=== PATIENT | male | born 1990 | race Caucasian/White ===

== ENCOUNTER 2021-08-07 10:50 | Inpatient (IN) | payer OTHER ==
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
[2021-08-07] MEDS ORDERED: MAG HYDROX/AL HYDROX/SIMETH 30 ML CUP PO PRN (15:27)
[2021-08-07] MEDS ORDERED: MAGNESIUM HYDROXIDE 2,400 MG/10 ML CUP PO PRN (15:27)
[2021-08-07] MEDS ORDERED: ACETAMINOPHEN TAB 325 MG TAB PO PRN (15:27)
[2021-08-07] MEDS ORDERED: NICOTINE 14MG/24HR PATCH TRANSDERM SCH (15:30)
[2021-08-07] MEDS ORDERED: OLANZapine 10 MG VIAL IM PRN (15:35)
[2021-08-07] MEDS ORDERED: OLANZapine 5 MG TAB PO PRN (15:35)
[2021-08-07] MEDS ORDERED: traZODone HCL 50 MG TAB PO PRN (15:36)
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
[2021-08-08 07:07] VITALS: RESP 16
[2021-08-08 08:00] LABS: Basophils # (A) 0.1 k/uL (0-0.2); Basophils % (A) 1 %; Eosinophils # (A) 0.4 k/uL (0-0.7); Eosinophils % (A) 4 %; HCT 48.7 % (39.0-53.0); HGB 16.1 gm/dL (13.0-17.5); Lymphocytes # (A) 1.9 k/uL (1.0-4.8); Lymphocytes % (A) 21 %; MCH 30.5 pg (25.0-35.0); MCV 92.3 fL (80.0-100.0); Mean Platelet Volume 7.3; Monocytes # (A) 0.5 k/uL (0-1.0); Monocytes % (A) 5 %; Neutrophils % (A) 67 %; Platelet Count 274 k/uL (150-450); RBC 5.27 m/uL (4.30-5.90); RDW 12.4 % (11.5-15.5)
[2021-08-08 08:12] LABS: ALT 65 U/L (4-49); AST 46 U/L (17-59); African American GFR (CKD) >90 (>60 ml/min/1.73 sqM); Albumin 5.1 g/dL (3.5-5.0); Alkaline Phosphatase 66 U/L (38-126); Anion Gap 13 mmol/L; Blood Urea Nitrogen 16 mg/dL (9-20); Calcium 9.8 mg/dL (8.4-10.2); Carbon Dioxide 26 mmol/L (22-30); Chloride 104 mmol/L (98-107); Glucose 96 mg/dL (74-99); Non-African American GFR(CKD) >90 (>60 ml/min/1.73 sqM); Potassium 4.2 mmol/L (3.5-5.1); Sodium 143 mmol/L (137-145); Total Bilirubin 1.1 mg/dL (0.2-1.3); Total Protein 8.9 g/dL (6.3-8.2)
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
[2021-08-08] MEDS: ARIPiprazole 5 MG TAB PO SCH ×2 (16:02→16:05)
[2021-08-08 16:07] LABS: Chol/HDL Ratio 3.73 Ratio; LDL Cholesterol,Calculated 105.4 mg/dL (0.0-131.0)
[2021-08-08 20:55] LABS: Appearance,Urine Clear (Clear); Bilirubin,Urine Negative (Negative); Blood,Urine Negative (Negative); Color,Urine Yellow; Glucose,Urine (UA) Negative (Negative); Ketones,Urine Trace (Negative); Leukocyte Esterase,Urine Negative (Negative); Nitrite,Urine Negative (Negative); Protein,Urine Trace (Negative); Specific Gravity,Urine 1.031 (1.001-1.035)
[2021-08-08 22:25] LABS: Amphetamine Screen,Urine Not Detected (NotDetected); Barbiturate Screen,Urine Not Detected (NotDetected); Benzodiazepines Screen,Urine Not Detected (NotDetected); Cocaine Screen,Urine Not Detected (NotDetected); Methadone Screen, Urine Not Detected (NotDetected); Opiate Screen,Urine Not Detected (NotDetected); Oxycodone Screen, Urine Not Detected (NotDetected); Phencyclidine Screen,Urine Not Detected (NotDetected); Tricyclic Antidepressant,Urine Not Detected (NotDetected); Urn Cannabinoid Scrn Detected (NotDetected)
[2021-08-09] MEDS: ARIPiprazole 5 MG TAB PO SCH (09:38)
--- NOTE | 2021-08-09 10:37 | P.PN ---
Progress Note - Text Progress Note Date: 08/09/21 Interval History: Patient was seen wandering the hallways and was directable and agreeable to cee larkin with contract technical writer in the office. Patient states that he was just speaking with his mother over the phone and claims that she is very worried about him. She states that she is overreacting and he is trying to cope with his situation and being on the unit. He claims that he is feeling more positive today and trying to go to groups. He does continue to be more expansive in his affect and claims that he is not having any depression or anxiety. He is not taking any medications at this time and continues to not agree with treatment. He states that "I wish I went about it a different way but I still think that spiritually I should have done it" referring to what had occurred before coming into the hospital. She continues to make rastafari references and is religiously preoccupied. At this time patient denies any suicidal or homical ideations, intent or plan. Patient denies any auditory, visual hallucinations. Mental Status Exam: General Appearance: Patient appears to be well built, bald, wearing glasses, stated age is alert, directable. Patient appears to have fair hygiene and grooming. Behavior: Patient is seated without any agitated behavior. Religiously preoccupied. Speech: Patient's speech is fluent and nonpressured. Mood/Affect: Patient reports their mood is "good", affect is congruent Suicidality/Homicidality: Patient denies having any homicidal ideation intent or plan. Denies any suicidal ideations intent or plan Perceptions: Patient denies any visual hallucinations and denies any auditory hallucinations Though content/process: Religiously preoccupied, loose associations. Illogical at times. Memory and concentration: AOX3, grossly intact for the purposes of this session. Judgment and insight: Poor/impulsive, improving mildly Assessment Bipolar disorder, severe, manic episode, with psychotic features Cannabis use disorder Plan: -Patient continues to meet criteria for inpatient psychiatric admission for symptom stabilization and safety. Patient has not signed adult voluntary form and medication consent and was placed in patient's chart. -Medications: continue with Abilify 5 mg daily for mood stabilization/psychosis. Plan will be to transition patient onto a long-acting injection as patient has very poor insight and unlikely to take medications. Trazodone 50 mg daily at bedtime when necessary for insomnia. -When necessary Ativan and Haldol for agitation/aggression. -NRT -not needed as patient does not smoke. -SW on board for discharge planning. Encouraged the patient to participate in milieu. Currently awaiting deferral with district attorney and court date.
[2021-08-10] MEDS: ARIPiprazole 5 MG TAB PO SCH (08:50)
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
[2021-08-11] MEDS: ARIPiprazole 5 MG TAB PO SCH (07:57)
--- NOTE | 2021-08-11 11:52 | P.PN ---
Progress Note - Text Progress Note Date: 08/11/21 Interval History: Patient was seen in his room and was directable and agreeable to speak with insurance writer. This patient was [facility] from [facility] and minimizes his problems. He stated it was just one big misunderstanding. He stated he got well with just 1 pill of medication.. At this time patient denies any suicidal or homical ideations, intent or plan. Patient denies any auditory, visual hallucinations and denies any paranoia or delusions. Patient denies any side effects from the medications and has been compliant with meds. Mental Status Exam: General Appearance: Patient appears to be stated age is alert, directable, and cooperative. Behavior: Patient is calmly seated without any agitated behavior. Speech: Patient's speech is fluent and nonpressured. Mood/Affect: Mood is improving mildly, affect is congruent and constricted. Suicidality/Homicidality: Patient denies having any suicidal or homicidal ideation intent or plan. Perceptions: Patient denies any visual hallucinations and denies any auditory hallucinations Though content/process: There is no evidence of any delusional thought content and thought process is linear and goal-directed. Memory and concentration: AOX3, grossly intact for the purposes of this session Judgment and insight: Improving mildly Assessment This patient has a significant denial to his illness and continues to show residual symptoms of present illness. Plan: -Patient continues to meet criteria for inpatient psychiatric admission for symptom stabilization and safety. -Medications: Continue medication as before. -When necessary Ativan and Haldol for agitation/aggression. -SW on board for discharge planning. Encouraged the patient to participate in milieu.
[2021-08-12] MEDS: ARIPiprazole 5 MG TAB PO SCH (07:46)
--- NOTE | 2021-08-12 11:33 | P.PN ---
Progress Note - Text Progress Note Date: 08/12/21 Interval History: Patient was seen wandering the hallways and was directable and agreeable to cee larkin with automatic typewriter inspector in the office. Patient claims that he has been going to groups and is feeling better today. He states that he is having more reflection back on the events that occur and was very regretful about what he did. He states that he wants to call the Eligibility Consultant's Department and also apologized to automatic typewriter inspector several times about his interaction when he first came into the hospital with him. Patient states that he is thinking about more clearly today and is thankful for being on the Abilify. He started taking it over the weekend as he was encouraged by one of the nurses. He states that he has been sleeping fairly well. He claims that he isn't speaking with his mother over the phone. He was anxious about dealing with the police once he is discharged. He also wants to speak with his community marketing manager to possibly sign the deferral. He claims that his mood and anxiety but improving. Improvement in his gnosticist preoccupation today. At this time patient denies any suicidal or homical ideations, intent or plan. Patient denies any auditory, visual hallucinations. Mental Status Exam: General Appearance: Patient appears to be well built, bald, wearing glasses, stated age is alert, directable. Patient appears to have fair hygiene and grooming. Behavior: Patient is seated without any agitated behavior. Religiously preoccupied, improving mildly. Speech: Patient's speech is fluent and nonpressured. Mood/Affect: Patient reports their mood is "good", affect is congruent Suicidality/Homicidality: Patient denies having any homicidal ideation intent or plan. Denies any suicidal ideations intent or plan Perceptions: Patient denies any visual hallucinations and denies any auditory hallucinations Though content/process: Religiously preoccupied, probably mildly. more logical, goal oriented. Memory and concentration: AOX3, grossly intact for the purposes of this session. Judgment and insight: improving mildly Assessment: Bipolar disorder, severe, manic episode, with psychotic features Cannabis use disorder Plan: -Patient continues to meet criteria for inpatient psychiatric admission for symptom stabilization and safety. Patient has not signed adult voluntary form and medication consent and was placed in patient's chart. -Medications: increase Abilify 7.5 mg daily for mood stabilization/psychosis. Plan to offer PETE to patient to help with compliance. increase Trazodone 150 mg daily at bedtime for insomnia/mood -When necessary Ativan and Haldol for agitation/aggression. -NRT -not needed as patient does not smoke. -SW on board for discharge planning. Encouraged the patient to participate in milieu. Currently awaiting deferral with community marketing manager and court date.
[2021-08-13 06:01] VITALS: TEMP 97.6
[2021-08-13] MEDS ORDERED: ARIPiprazole 5 MG TAB PO SCH (09:00)
[2021-08-13] MEDS ORDERED: ARIPiprazole IM SYRINGE 400 MG (NO CHARGE) PHARMACY STOCK IM ONE (14:04)
--- NOTE | 2021-08-13 14:28 | P.PN ---
Progress Note - Text Progress Note Date: 08/13/21 Interval History: Patient was seen lying in his bed today and was directable and agreeable to sp chaya with specification writer in the office. Patient claims that he has been going to groups and is feeling better today appears to be more positive in his affect. He states that he had difficulty with sleep yesterday because a "unwanted visitor" came into his room as it sounded like a late admission and was disruptive therefore he claims that he was woken up and told the nurse and he was moved to a different room down the hallway. He states that he was scared for the new patient and claims that "I don't want to be like him". We spoke more about his medications and the option for long-acting injection inpatient was agreeable to get started on the Abilify Maintenna today to ensure compliance. He states that his appetite is fair and he has been going to groups. He claims that he has a more positive outlook today and is denying any depression or anxiety..He also wants to speak with his broke beater machine operator to possibly sign the deferral which she will likely be speaking with him today. He claims that his mood and anxiety but improving. At this time patient denies any suicidal or homical ideations, intent or plan. Patient denies any auditory, visual hallucinations. Mental Status Exam: General Appearance: Patient appears to be well built, bald, wearing glasses, stated age is alert, directable. Patient appears to have fair hygiene and grooming. Behavior: Patient is seated without any agitated behavior. Religiously preoccupied, improving mildly. Speech: Patient's speech is fluent and nonpressured. Mood/Affect: Patient reports their mood is "better", affect is congruent Suicidality/Homicidality: Patient denies having any homicidal ideation intent or plan. Denies any suicidal ideations intent or plan Perceptions: Patient denies any visual hallucinations and denies any auditory hallucinations Though content/process: Religiously preoccupied, improving mildly. more logical, goal oriented. Memory and concentration: AOX3, grossly intact for the purposes of this session. Judgment and insight: improving mildly Assessment: Bipolar disorder, severe, manic episode, with psychotic features Cannabis use disorder Plan: -Patient continues to meet criteria for inpatient psychiatric admission for s ymptom stabilization and safety. Patient has not signed adult voluntary form and medication consent and was placed in patient's chart. -Medications: increase Abilify 10 mg daily for mood stabilization/psychosis. The plan to give Abilify Maintenna 400 mg IM today to help ensure compliance. Trazodone 50 mg daily prn at bedtime for insomnia/mood. -When necessary Ativan and Haldol for agitation/aggression. -NRT -not needed as patient does not smoke. -SW on board for discharge planning. Encouraged the patient to participate in milieu. Currently awaiting deferral with broke beater machine operator scheduled for today. currently on a [facility] hold. Likely discharge tomorrow if patient defers.
[2021-08-14 07:13] VITALS: BP 126/64; PULSE 99
[2021-08-14] MEDS ORDERED: ARIPiprazole 10 MG TAB PO SCH (09:00)
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
== END 2021-08-14 15:45 | DRG 885 ==
LOC: EC 10:50 → 3MHU 15:08
PROVIDERS: ADMIT Psychiatry & Neurology Psychiatry; ATTEND Psychiatry & Neurology Psychiatry
DX: F31.2 Bipolar disorder, current episode manic severe with psychotic features (principal); F12.10 Cannabis abuse, uncomplicated; Z20.822 Contact with and (suspected) exposure to COVID-19; F41.0 Panic disorder [episodic paroxysmal anxiety]; G47.00 Insomnia, unspecified; Z60.2 Problems related to living alone; Z87.891 Personal history of nicotine dependence; Z87.19 Personal history of other diseases of the digestive system; Z98.890 Other specified postprocedural states; Z71.41 Alcohol abuse counseling and surveillance of alcoholic; Z71.51 Drug abuse counseling and surveillance of drug abuser
CPT/HCPCS: 80053; 80061; 80306; 81003; 82075; 83036; 84443; 85025; 87635; 99284